=== PATIENT | female | born 1940 | race Caucasian/White ===

== ENCOUNTER 2016-11-05 21:32 | Emergency (ER) | payer OTHER ==
[~2016-11-05] VITALS: Wt 63.0 kg
[2016-11-06] MEDS ORDERED: HYDROCODONE/APAP (5/325) TAB PO ONE (02:30)
--- NOTE | 2016-11-06 02:32 | ERD ---
ER Documentation Chief Complaint Date/Time DATE: 11/06/16 TIME: 02:30 Chief Complaint R UPPER ARM PAIN FROM A FALL . NO DEFORMITY BUT LIMITED ROM DUE TO PAIN HPI This is a 76-year-old female who presents to the emergency department today complaining of right arm pain after sustaining a fall earlier this evening. Patient states she was walking outside in the dark when she tripped and fell. Denies hitting her head or loss of consciousness. She has not taken any medication for the pain. Denies any previous trauma. Denies any fevers or chills. ROS All systems reviewed and are negative except as per history of present illness. Medications Home Meds Active Scripts Acetaminophen* (Tylophen*) 500 Mg Capsule, 1 CAP PO Q6H Y for PAIN AND OR ELEVATED TEMP, #30 CAP Prov:LINO GARCIA PA-C 11/06/16 Tramadol HCl (Tramadol HCl) 50 Mg Tablet, 50 MG PO Q4 Y for PAIN, #20 TAB Prov:LINO GARCIA PA-C 11/06/16 Physical Exam Vitals Vital Signs Date Time Temp Pulse Resp B/P Pulse Ox O2 Delivery O2 Flow Rate FiO2 11/05/16 21:51 98.4 77 21 219/94 95 Physical Exam Const: No acute distress Head: Atraumatic Eyes: Normal Conjunctiva ENT: Normal External Ears, Nose and Mouth. Neck: Full range of motion..~ No meningismus. Resp: Clear to auscultation bilaterally Cardio: Regular rate and rhythm, no murmurs Skin: No petechiae or rashes MSK: Right arm with no obvious deformity. No effusion. No ecchymosis. Tenderness to palpation over humerus and right shoulder. Nontender elbow and wrist. Unable to assess range of motion secondary to pain. Pulses 2+. Distal neurovascularly intact. Neur: Awake and alert Psych: Normal Mood and Affect Results 24 hrs Current Medications Medications (Trade) Dose Ordered Sig/Rosa Route PRN Reason Start Time Stop Time Status Last Admin Dose Admin Acetaminophen/ Hydrocodone Bitart (Jackson (5/325)) 1 tab ONCE ONCE PO 11/06/16 02:30 11/06/16 02:31 DC 11/06/16 02:35 DIAGNOSTIC IMAGING REPORT Patient: YESSICA POZO : 1940 Age: 76 Sex: F MR #: [id number] DOS: 11/06/16 0000 Ordering MD: LINO GARCIA PA-C Location: [facility] Room/Bed: PROCEDURE: XR Humerus. CLINICAL INDICATION: trauma, fall TECHNIQUE: AP and lateral views of the right humerus were performed. COMPARISON: None. FINDINGS: Comminuted fracture of the right humeral neck and greater tuberosity is again seen with slight inferior subluxation of the humeral head. No other fracture is seen.. IMPRESSION: Comminuted fractures of the right humeral neck and greater tuberosity again seen. RPTAT: [facility] Kay Dudley, Physician Date Time Electronically viewed and signed by Kay Dudley Physician on 11/06/2016 03 :51 LE/ CC: LINO GARCIA PA-C DIAGNOSTIC IMAGING REPORT Patient: YESSICA POZO : 1940 Age: 76 Sex: F MR #: [id number] DOS: 11/06/16 0000 Ordering MD: LINO GARCIA PA-C Location: [facility] Room/Bed: PROCEDURE: XR right shoulder. CLINICAL INDICATION: trauma, fall TECHNIQUE: 2 views of the right shoulder were performed. COMPARISON: None. FINDINGS: There is a comminuted fracture of the right humeral neck and greater tuberosity with displacement of fragments. Slight inferior subluxation of the humeral head is seen. No other fracture or evidence of kesha dislocation is seen. No significant degenerative change. No definite soft tissue abnormality. IMPRESSION: Comminuted fracture of the right humeral neck and greater tuberosity with inferior subluxation of the humeral head.. RPTAT: [facility] Kay Dudley, Physician Date Time Electronically viewed and signed by Kay Dudley Physician on 11/06/2016 03 :50 LE/ CC: LINO GARCIA PA-C Procedures/MDM This a 76-year-old female who presents to the emergency department today complaining of right shoulder and arm pain after sustaining a mechanical fall earlier this evening. Given that there was trauma I did obtain images. Per the radiology report images of the right shoulder and humerus show a comminuted fracture of the right humeral neck and greater tuberosity. There is slight inferior subluxation of the humeral head. There is displacement of fragments. I have discussed the imaging report with Dr. Newsome and he feels that the patient is stable for outpatient management. She was placed in a long-arm splint and given a sling. Patient is distally neurovascularly intact pre-and post splint application. She will be given a referral information for Dr. Rolle who is the orthopedist on-call today. Patient was given a Jackson and sling here in the emergency department. She will be given a prescription for tramadol, Tylenol for home. At this time the patient is stable for discharge and outpatient management. Patient should follow up with their PCP in the next 1-2 days. They may return to the emergency department sooner for any persistent or worsening of symptoms. Patient understood and agreed with the plan. Departure Diagnosis: Primary Impression: Fall with significant injury Encounter type: initial encounter Qualified Code: W19.XXXA - Fall with significant injury, initial encounter Additional Impression: Arm fracture Encounter type: initial encounter Fracture type: closed Laterality: right Qualified Code: S42.301A - Arm fracture, right, closed, initial encounter Condition: Fair LINO GARCIA PA-C Nov 06, 2016 02:32
--- NOTE | 2016-11-06 03:50 | RADRPT ---
PROCEDURE: XR right shoulder. CLINICAL INDICATION: trauma, fall TECHNIQUE: 2 views of the right shoulder were performed. COMPARISON: None. FINDINGS: There is a comminuted fracture of the right humeral neck and greater tuberosity with displacement of fragments. Slight inferior subluxation of the humeral head is seen. No other fracture or evidence of kesha dislocation is seen. No significant degenerative change. No definite soft tissue abnormal ity. IMPRESSION: Comminuted fracture of the right humeral neck and greater tuberosity with inferior subluxation of th e humeral head.. RPTAT: [facility] Physician Ness Date Time Electronically viewed and signed by Physician Ness on 11/06/2016 03:50 LE/
--- NOTE | 2016-11-06 03:51 | RADRPT ---
PROCEDURE: XR Humerus. CLINICAL INDICATION: trauma, fall TECHNIQUE: AP and lateral views of the right humerus were performed. COMPARISON: None. FINDINGS: Comminuted fracture of the right humeral neck and greater tuberosity is again seen with slight infer ior subluxation of the humeral head. No other fracture is seen.. IMPRESSION: Comminuted fractures of the right humeral neck and greater tuberosity again seen. RPTAT: [facility] Kay Dudley Physician Date Time Electronically viewed and signed by Kay Dudley Physician on 11/06/2016 03:51 LE/
[2016-11-06] MEDS ORDERED: TRAM50TA2 PO (04:22)
[2016-11-06] MEDS ORDERED: ACET500C5 PO (04:22)
== END 2016-11-06 05:45 | disposition home or self-care (01) ==
LOC: FTE 21:32
DX: S42.251A Displaced fracture of greater tuberosity of right humerus, initial encounter for closed fracture (principal); W01.0XXA Fall on same level from slipping, tripping and stumbling without subsequent striking against object, initial encounter; Y92.9 Unspecified place or not applicable